=== PATIENT | female | born 1945 | race Caucasian/White ===

== ENCOUNTER 2017-12-21 15:43 | Inpatient (IN) | payer BC, OTHER ==
[~2017-12-21] VITALS: Ht 157.5 cm; Wt 81.7 kg
[2017-12-21] MEDS ORDERED: NITROGLYCERIN 0.4 MG SL PER TAB CHARGE SL PRN (17:00)
[2017-12-21] MEDS ORDERED: ONDANSETRON INJ 2 MG/ML 2 ML VIAL IV PRN (17:00)
[2017-12-21] MEDS ORDERED: ACETAMINOPHEN 325 MG TAB PO PRN (17:00)
[2017-12-21 17:10] VITALS: BP 135/85; PULSE 124; TEMP 36.7; O2SAT 98; Ht 157.5 cm; Wt 81.7 kg
[2017-12-21] MEDS ORDERED: PATIENT'S ALLERGY INFO NEEDS ENTERED SCH (17:15)
[2017-12-21] MEDS ORDERED: PATIENT'S HEIGHT AND/OR WEIGHT NEEDED SCH (17:15)
[2017-12-21] MEDS ORDERED: HEPARIN IV BOLUS 5,000 UNIT in SYRINGE 0 ML IV ONE (17:30)
--- NOTE | 2017-12-21 17:42 | History and Physical ---
History & Physical Date & Time of Service: Dec 21, 2017 at 16:58 Chief Complaint: Afib With Rvr Primary Care Physician: Kiet Barton M.D. History of Present Illness Patient is a pleasant 72yo C female with history of CAD s/p CABG x 3V in 1989, LLE DVT who presented to [facility] with 4 days of progressive SOB and CLAIRE. She also has some mild chest pain with exertion. Patient was recently diagnosed with a LLE DVT approximately 4 weeks ago in her outpatient clinic. She was started on Xarelto anticoagulation. She reports being somewhat compliant with her medication but has missed doses. On arrival to OSH she was found to be tachycardic at 120 and hypertensive. Her troponin was 0.03 and she had an elevated BNP at 2817. Her CXR showed small bilateral pleural effusions and an enlarged cardiac silhouette. 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 There was some concern that the PEs occurred while on Xarelto therapy therefore signifies Xarelto failure. She has been transferred to [facility] for evaluation for possible IVC filter and continued maintenance of medical problems. Patient was managed with a diltiazem drip and Lopressor while at the OSH. The diltiazem gtt has since been discontinued. She arrived to the unit in stable condition, JJ=[id number], appears to be atrial flutter. LU=244/96. She has no complaints at present. States that she has increased CLAIRE and some swelling in her legs. Home medications: SYnthroid 125mcg po daily Xarelto 15mg po BID Zocor 40mg po daily ASA 81mg po daily Metoprolol 50mg po BID Past Medical/Surgical History Medical Problems: 1. Atrial fibrillation 2. Pulmonary emboli - small defects in right and left lower segmental pulmonary arteries 3. DVT 4. CAD s/p CABG x 3V in 1989 5. Hypothyroidism 6. Hypertension 7. Hyperlipidemia Family History Blood clots - 2 daughters and brother Social History Smoking Status: Never Smoker Alcohol Use: none Drug Use: none Marital Status: Housing status: lives with family Allergies Coded Allergies: No Known Allergies (Unverified , 12/21/17) Review of Systems Constitutional: No fever, No chills, No sweats, No weight loss Eyes: No eye pain, No diplopia ENT: No hearing loss, No sore throat Respiratory: + shortness of breath, + dyspnea on exertion, No cough, No sputum Cardiovascular: + orthopnea, No chest pain, No edema Abdomen: No pain, No nausea, No vomiting, No diarrhea, No constipation Genitourinary - Female: No dysuria, No urinary frequency, No urinary urgency Physical Exam General Appearance: WD/WN, no apparent distress Head: normocephalic, atraumatic Eyes: normal inspection, PERRL, EOMI, sclerae normal ENT: normal ENT inspection, hearing grossly normal, pharynx normal Neck: supple, no adenopathy, thyroid normal, no JVD, trachea midline Respiratory/Chest: chest non-tender (crackles present in bilateral bases), no respiratory distress, no accessory muscle use Cardiovascular: no JVD, no murmur, normal peripheral pulses (+S1/S2, regular, tachycardic at 125bpm) Abdomen/GI: normal bowel sounds, non tender, soft, no organomegaly, no pulsatile mass Back: normal inspection, no CVA tenderness Extremities/Musculoskelatal: normal inspection (mild LE edema) Neurologic/Psych: no motor/sensory deficits, alert, normal mood/affect, oriented x 3 Skin: normal color, warm/dry, no rash Diagnostics Laboratory Results Results Past 24 Hours Test 12/21/17 16:49 Range/Units Diagnostic Radiology CXR ordered EKG The study demonstrates sinus tachycardia at 125bpm, normal axis, QRS at 124, some ST depression in the lateral leads, V4-V6 No prior EKG available Impression Assessment and Plan 72yo C female with history of CAD s/p CABG x 3 vessel in 1989, AF with RVR, recently diagnosed LLE DVT with small PEs transferred from [facility] for possible placement of IVC filter 1. DVT with PE - patient diagnosed in the outpatient setting and started on anticoagulation with Xarelto. She was seen for worsening CLAIRE which prompted a CT chest which revealed small defects in the right and left lower segmental pulmonary arteries suggestive of PE. Concern for Xarelto failure. Patient reports missing some dosages of Xarelto. Uncertain of age of PEs. If they are new and occurred while on Xarelto therapy then it may represent treatment failure, however, this is difficult to say for sure given the fact that the patient admits to missing some doses per records. I suspect that the PEs are old and are not, in fact the cause of her worsening CLAIRE. Uncertain if patient will require an IVC filter. -Will check LLE duplex US to assess size of blood clot -Heparin gtt per protocol -Supplemental O2 as needed to maintain SaO2>94% -Pulmonary consult re: status of PEs and possible placement of IVC filter 2. Atrial fibrillation/flutter - patient presently appears to be in atrial flutter on the monitor with HR of 125bpm. -Anticoagulation with heparin gtt -Will increase metoprolol to 100mg po BID and give first dose now -Metoprolol 5mg IV PRN tachycardia -Check TSH and T4 -Check 2D echocardiogram -Consider cardiology consultation in AM if patient's HR fails to respond to increased dose of Metoprolol 3. Hypothyroidism - patient on SYnthroid at home -Continue Synthroid 125mcg po daily 4. CAD - patient with history of CABG x 3V in 1989. Presently CP free. Mild elevation in troponin at OSH -Continue ASA 81mg po daily -Continue ZOcor 40mg po daily -Continue Metoprolol at increased dose as above -Trend cardiac enzymes x 3 sets to monitor trend -EKG for CP -Nitroglycerine PRN CP 5. HTN - patietn presently hemodynamically stable. -Continue Metoprolol as above -Continue to monitor 6. Hyperlipidemia - stable -Continue Zocor as above 7. ?Heart failure - Patient with elevated BNP at OSH, rales on pulmonary exam on the bases. I suspect that she is in mild CHF in setting of uncontrolled AF -Check 2D echocardiogram -Lasix 40mg IV BID -Monitor UOP -Monitor electrolytes 8. F/E/N - Heplock. Diuresis as above. Monitor electrolytes and replete as needed. AHA diet as tolerated 9. Code - Full 10. Dispo - MedTele Resuscitation Status Full VTE Prophylaxis Will order VTE Prophylaxis: Yes
[2017-12-21] MEDS ORDERED: METOPROLOL TARTRATE 100 MG TAB PO ONE (17:45)
[2017-12-21 17:47] LABS: BASO % 0.2 %; BASO ABS # 0.02 K/uL (0-0.2); EOS % 1.5 %; EOS ABS # 0.16 K/uL (0-0.5); HEMATOCRIT 34.4 % (37-47); HEMOGLOBIN 11.2 g/dL (12.0-16.0); IG# 0.03 K/uL (0.00-0.02); LYMPH % 20.6 %; LYMPH ABS # 2.17 K/uL (1.2-3.4); MEAN CELL VOLUME 89.6 fL (80-100); MEAN CORPUSCULAR HEMOGLOBIN 29.2 pg (25-34); MEAN CORPUSCULAR HGB CONC 32.6 g/dl (32-36); MEAN PLATELET VOLUME 9.2 fL (7.4-10.4); MONO % 11.7 %; MONO ABS # 1.23 K/uL (0.11-0.59); NEUT % 65.7 %; NEUT ABS # 6.92 K/uL (1.4-6.5); PLATELET COUNT 261 K/uL (130-400); RED CELL DISTRIBUTION WIDTH CV 14.4 % (11.5-14.5); RED CELL DISTRIBUTION WIDTH SD 47.6 fL (36.4-46.3); WHITE BLOOD COUNT 10.53 K/uL (4.8-10.8)
--- NOTE | 2017-12-21 18:01 | DIAGNOSTIC IMAGING REPORT ---
CHEST ONE VIEW PORTABLE HISTORY: 72 years-old Female AFIB WITH RVR acute atrial fibrillation COMPARISON: None available TECHNIQUE: Portable AP view the chest FINDINGS: Cardiac silhouette is mildly enlarged. Prior median sternotomy. Surgical clips project over the left mediastinal margin, possibly reflecting prior CABG. No pneumothorax. Trace bilateral pleural effusions with subsegmental bibasilar opacities and mild left hemidiaphragmatic elevation. No overt pulmonary edema. Bones of the chest appear grossly intact. IMPRESSION: 1. Cardiomegaly without overt pulmonary edema. 2. Trace bilateral pleural effusions with subsegmental bibasilar opacities favoring atelectasis. 3. Mild left hemidiaphragmatic elevation. The above report was generated using voice recognition software. It may contain grammatical, syntax or spelling errors. Electronically signed by: José Miguel Chang M.D. 12/21/2017 6:00 PM Dictated Date/Time: 12/21/2017 5:58 PM
[2017-12-21 18:09] LABS: INR 1.1 (0.9-1.1)
[2017-12-21 18:14] LABS: ALBUMIN 3.3 gm/dl (3.4-5.0); CALCIUM 8.6 mg/dl (8.5-10.1); CREATININE 0.82 mg/dl (0.60-1.20); POTASSIUM 3.7 mmol/L (3.5-5.1)
[2017-12-21 18:25] LABS: PHOSPHORUS 3.1 mg/dl (2.5-4.9); TOTAL PROTEIN 6.8 gm/dl (6.4-8.2)
[2017-12-21 18:31] LABS: PTT PATIENT 51.6 SECONDS (21.0-31.0)
[2017-12-21] MEDS: HEPARIN 25,000 UNIT/500ML D5W 500 ML IV SCH (18:35)
--- NOTE | 2017-12-21 18:44 | DIAGNOSTIC IMAGING REPORT ---
BILATERAL LOWER EXTREMITY VENOUS DOPPLER CLINICAL HISTORY: dvt COMPARISON STUDY: No previous studies for comparison. TECHNIQUE: Sonography of the deep venous system of the bilateral lower extremities was performed. Compression and augmentation were evaluated. FINDINGS: The common femoral, superficial femoral and popliteal veins were compressible. Augmentation was normal. Flow was shown within the deep calf vessels. Note was made of minimal echogenic material within the left peroneal vein which represents nonocclusive thrombus. IMPRESSION: 1. Minimal echogenic material within the left peroneal vein which suggests chronic thrombus. 2. No evidence for acute deep venous thrombus within either lower extremity. Electronically signed by: Prosper Schwartz M.D. 12/21/2017 6:43 PM Dictated Date/Time: 12/21/2017 6:42 PM
[2017-12-21 20:00] VITALS: BP 143/88; PULSE 124; TEMP 36.8; O2SAT 95; O2SAT 96
[2017-12-21] MEDS ORDERED: FUROSEMIDE INJ 40 MG in SYRINGE 0 ML IV ONE (21:00)
[2017-12-21] MEDS: SIMVASTATIN 40 MG TAB PO SCH (21:17)
[2017-12-21] MEDS: METOPROLOL TARTRATE 100 MG TAB PO SCH (21:18)
[2017-12-21 23:00] VITALS: BP 138/95; PULSE 122; TEMP 36.7; O2SAT 94
[2017-12-21 23:59] VITALS: O2SAT 94
[2017-12-22] VITALS (9 sets, daily range): BP systolic 112–132; BP diastolic 64–96; PULSE 58–128; TEMP 36.4–36.8; O2SAT 92–97
[2017-12-22 01:13] LABS: PTT PATIENT 60.5 SECONDS (21.0-31.0)
[2017-12-22] MEDS: METOPROLOL TARTRATE 1 MG/ML VIAL IV PRN ×2 (01:16→09:03)
[2017-12-22 05:52] LABS: BASO % 0.4 %; BASO ABS # 0.04 K/uL (0-0.2); EOS % 2.9 %; EOS ABS # 0.27 K/uL (0-0.5); HEMOGLOBIN 11.8 g/dL (12.0-16.0); IG# 0.02 K/uL (0.00-0.02); LYMPH % 24.8 %; LYMPH ABS # 2.32 K/uL (1.2-3.4); MEAN CELL VOLUME 89.8 fL (80-100); MEAN CORPUSCULAR HEMOGLOBIN 28.6 pg (25-34); MEAN CORPUSCULAR HGB CONC 31.9 g/dl (32-36); MEAN PLATELET VOLUME 9.3 fL (7.4-10.4); MONO % 10.3 %; MONO ABS # 0.96 K/uL (0.11-0.59); NEUT % 61.4 %; NEUT ABS # 5.75 K/uL (1.4-6.5); PLATELET COUNT 275 K/uL (130-400); RED CELL DISTRIBUTION WIDTH CV 14.4 % (11.5-14.5); RED CELL DISTRIBUTION WIDTH SD 47.5 fL (36.4-46.3); WHITE BLOOD COUNT 9.36 K/uL (4.8-10.8)
[2017-12-22] MEDS: LEVOTHYROXINE 125 MCG TAB PO SCH (06:12)
[2017-12-22 06:18] LABS: PTT PATIENT 25.9 SECONDS (21.0-31.0)
[2017-12-22 06:32] LABS: BLOOD UREA NITROGEN 15 mg/dl (7-18); CALCIUM 9.1 mg/dl (8.5-10.1); CARBON DIOXIDE 30 mmol/L (21-32); CREATININE 0.89 mg/dl (0.60-1.20); GLUCOSE 130 mg/dl (70-99); POTASSIUM 3.5 mmol/L (3.5-5.1); SODIUM 137 mmol/L (136-145)
[2017-12-22] MEDS ORDERED: HEPARIN IV BOLUS 5,000 UNIT in SYRINGE 0 ML IV ONE (07:15)
--- NOTE | 2017-12-22 09:06 | ECHOCARDIOGRAM REPORT ---
*NOTICE TO RECEIVING REPUBLICAN AGENCY This information is strictly Confidential and protected under [place] law. [place] law prohibits you from making any further disclosure of this information unless further disclosure is expressly permitted by the written consent of the person to whom it pertains or is authorized by law. A general authorization for the release of medical or other information is not sufficient for this purpose. Hospital accepts no responsibility if the information is made available to any other person, INCLUDING THE PATIENT. Interpretation Summary * Name: GEE HANDLEY Study Date: 12/22/2017 06:27 AM BP: 132/96 mmHg * [facility] HR: 121 * : 1945 (M/d/yyyy) Gender: Female Height: 62 in * Age: 72 yrs Ethnicity: ID Weight: 183 lb * Ordering Physician: Hillary Kay * Referring Physician: No Doctor, Assigned * Performed By: Karissa Justin RCS * * Reason For Study: A-FIB * BSA: 1.8 m2 * -- Conclusions -- * Left ventricular systolic function is mildly reduced. * No definite wall motion abnormality. * Ejection Fraction = 40-45%. * There is moderate concentric left ventricular hypertrophy. * Diastolic dysfunction is suggested. * There is mild to moderate mitral regurgitation. * There is moderate tricuspid regurgitation. Procedure Details * A complete two-dimensional transthoracic echocardiogram was performed (2D, M-mode, Doppler and color flow Doppler). Left Ventricle * The left ventricle is normal in size. * There is moderate concentric left ventricular hypertrophy. * Left ventricular systolic function is mildly reduced. * Ejection Fraction = 40-45%. * No definite wall motion abnormality. Right Ventricle * The right ventricle is not well visualized. * The right ventricular systolic function is normal as assessed by tricuspid annular plane systolic excursion (TAPSE) (normal >1.5 cm). Atria * The left atrium is mildly dilated. * Right atrium not well visualized. * There is no evidence of atrial septal defect, but resolution does not allow assessment for a patent foramen ovale. Mitral Valve * The mitral valve is grossly normal. * There is no mitral valve stenosis. * There is mild to moderate mitral regurgitation. Tricuspid Valve * The tricuspid valve is not well visualized, but is grossly normal. * There is no tricuspid stenosis. * There is moderate tricuspid regurgitation. * Right ventricular systolic pressure is elevated at 30-40mmHg. Aortic Valve * The aortic valve is trileaflet. * The aortic valve opens well. * Aortic valve sclerosis moderate, without significant aortic valvular stenosis. * There is no significant aortic regurgitation. Pulmonic Valve * The pulmonary valve is not well seen, but the Doppler examination is normal without significant regurgitation or stenosis. Great Vessels * The aortic root is normal size. * The pulmonary is not well visualized. Pericardium/Pleural * There is no pericardial effusion. Great Vessels * Normal inferior vena cava size and collapsability with sniff indicates a normal right atrial pressure of 3 mmHg Left Ventricular Diastolic Function * Diastolic dysfunction is suggested. MMode 2D Measurements and Calculations IVSd 1.6 cm IVSs 1.8 cm LVIDd 3.2 cm LVIDs 2.9 cm LVPWd 1.3 cm LVPWs 1.5 cm IVS/LVPW 1.2 FS 8.7 % EDV(Teich) 41.3 ml ESV(Teich) 33.1 ml EF(Teich) 19.8 % EDV(cubed) 33.1 ml ESV(cubed) 25.2 ml EF(cubed) 23.8 % % IVS thick 15.1 % % LVPW thick 15.2 % LV mass(C)d 164.7 grams LV mass(C)dI 89.5 grams/m\S\2 LV mass(C)s 187.2 grams LV mass(C)sI 101.7 grams/m\S\2 SV(Teich) 8.2 ml SI(Teich) 4.4 ml/m\S\2 SV(cubed) 7.9 ml SI(cubed) 4.3 ml/m\S\2 Ao root diam 3.0 cm Ao root area 7.3 cm\S\2 LA dimension 4.2 cm LA/Ao 1.4 LVOT diam 1.8 cm LVOT area 2.7 cm\S\2 LVAd ap4 27.0 cm\S\2 LVLd ap4 7.2 cm EDV(MOD-sp4) 80.1 ml EDV(sp4-el) 86.4 ml LVAs ap4 20.0 cm\S\2 LVLs ap4 6.3 cm ESV(MOD-sp4) 52.3 ml ESV(sp4-el) 54.2 ml EF(MOD-sp4) 34.7 % EF(sp4-el) 37.2 % LVAd ap2 25.7 cm\S\2 LVLd ap2 7.1 cm EDV(MOD-sp2) 77.1 ml EDV(sp2-el) 79.3 ml LVAs ap2 19.8 cm\S\2 LVLs ap2 5.8 cm ESV(MOD-sp2) 54.9 ml ESV(sp2-el) 56.8 ml EF(MOD-sp2) 28.8 % EF(sp2-el) 28.4 % LVLd %diff -1.57 % EDV(MOD-bp) 80.6 ml LVLs %diff -7.36 % ESV(MOD-bp) 55.9 ml EF(MOD-bp) 30.7 % SV(MOD-sp4) 27.8 ml SI(MOD-sp4) 15.1 ml/m\S\2 SV(MOD-sp2) 22.2 ml SI(MOD-sp2) 12.1 ml/m\S\2 SV(MOD-bp) 24.7 ml SI(MOD-bp) 13.4 ml/m\S\2 SV(sp4-el) 32.2 ml SI(sp4-el) 17.5 ml/m\S\2 SV(sp2-el) 22.5 ml SI(sp2-el) 12.2 ml/m\S\2 Doppler Measurements and Calculations MV E max maritza 122.9 cm/sec MV P1/2t max maritza 143.2 cm/sec MV P1/2t 50.5 msec MVA(P1/2t) 4.4 cm\S\2 MV dec slope 831.1 cm/sec\S\2 MV dec time 0.15 sec Ao V2 max 108.7 cm/sec Ao max PG 4.7 mmHg Ao max PG (full) 0.92 mmHg BRAD(V,A) 2.4 cm\S\2 BRAD(V,D) 2.4 cm\S\2 LV V1 max PG 3.8 mmHg LV V1 max 97.6 cm/sec MR max maritza 480.9 cm/sec MR max PG 92.5 mmHg PA V2 max 79.4 cm/sec PA max PG 2.5 mmHg TR max maritza 240.4 cm/sec
[2017-12-22] MEDS ORDERED: DILTIAZEM BOLUS / DRIP IV STA (09:34)
[2017-12-22] MEDS: DILTIAZEM HCL INJ 125 MG in DEXTROSE 5% 100ML IV PRN ×2 (09:55→17:04)
[2017-12-22] MEDS: METOPROLOL TARTRATE 100 MG TAB PO SCH ×2 (09:56→20:19)
[2017-12-22] MEDS: ASPIRIN 81 MG ECTAB PO SCH (09:56)
[2017-12-22] MEDS ORDERED: DILTIAZEM BOLUS FROM BAG IV ONE (10:00)
--- NOTE | 2017-12-22 12:22 | Clinical Documentation Query ---
CLINICAL DOCUMENTATION QUERY Dr. KHOURY, In your clinical opinion is this patient being managed for: ( ) Acute combined systolic and diastolic CHF ( ) Acute systolic CHF ( ) Not Agree ( ) Other explanation of clinical findings (Please Explain) ( ) Unable to determine (Please Define) ( ) Need to Discuss The medical record reflects the following clinical findings, treatment, and risk factors. Clinical Indicators: 72 yo female presented with SOB and CLAIRE. BNP 2564, CXR with trace bilateral pleural effusions with subsegmental bibasilar opacities. Crackles noted in bilateral bases. H/P indicates "suspect she is in mild CHF". Treatment: IV lasix, ECHO, tele, cardiology consult pending, I/O, daily wts, IV cardizem, IV heparin, prn metoprolol, O2 support prn Risk Factors: age, DVT/PE, A flutter, HTN Please clarify and document your clinical opinion in the progress notes and discharge summary. Terms such as "probable", "suspected", "likely", "questionable", "possible", or "still to be ruled out" are acceptable. IF IN AGREEMENT, YOU MUST DOCUMENT ABOVE DIAGNOSTIC STATEMENT IN DAILY PROGRESS NOTES AND DISCHARGE SUMMARY. This document is not part of the patient's record. Thank You, Noemi Joaquin RN [phone]
[2017-12-22 14:03] LABS: PTT PATIENT 60.4 SECONDS (21.0-31.0)
[2017-12-22] MEDS: HEPARIN 25,000 UNIT/500ML D5W 500 ML IV SCH (14:49)
--- NOTE | 2017-12-22 14:58 | Cardiology Consultation ---
Cardiology Consultation Date of Consultation: Dec 22, 2017. Requesting Physician: Ashutosh Reason for Consultation: AFL Pt evaluation today including: conversation w/ patient, physical exam, chart review, lab review, review of studies, review of inpatient medication list, conversation w/ attending History of Present Illness Patient is a 72-year-old woman with a history of coronary disease who was recently diagnosed with a DVT. Patient states that several weeks ago she began to notice some swelling in her lower extremities and some change in her chronic spider veins involving the left leg. Her primary care physician report ordered an ultrasound which suggested an acute DVT. She was placed on anticoagulation and appears to be doing well until several days ago which be in experience progressive shortness of breath. Patient states that over a few days she became so dyspneic that she had difficulty sleeping at night. She had an element of orthopnea and had to sleep in a chair. Her symptoms became so severe that she presented to [facility] for evaluation. At that facility she was felt to have evidence of a pulmonary embolus. She also had a elevated BNP. Based on some concern for need of an IVC filter she was transferred to [facility] for treatment. Additionally, the patient was noted to have atrial flutter. This was new diagnosis. Patient states that over the days preceding her admission she had both exertional dyspnea and an element of chest pain. This chest pain was distinct from angina she experienced prior to her bypass surgery in 1989. This was also described as a sense of fluttering and a racing heartbeat in her chest. She did not have dizziness or lightheadedness. She did not suffer a syncopal episode. She has no pain currently. She has no pain in the lower extremities. Past Medical/Surgical History Coronary artery disease status post coronary bypass grafting Hyperlipidemia Hypertension Hypothyroidism Atrial flutter DVT Past surgical history: Coronary artery bypass grafting in [facility] 1989 Family History Possible hypercoagulable disorder Social History Smoking Status: Never Smoker History of Alcohol Use: No Review of Systems Per HPI. No recent fevers or chills. Normal bowel or bladder habits. Eating normally. No gastrointestinal complaints. All Other Systems: Reviewed and Negative Allergies Coded Allergies: No Known Allergies (Unverified , 12/21/17) Medications Current Inpatient Medications Medications (Trade) Dose Ordered Sig/Kenzie Route Start Time Stop Time Status Last Admin Dose Admin Acetaminophen (Tylenol Tab) 650 mg Q4H PRN PO 12/21/17 17:00 01/20/18 16:59 Ondansetron HCl (Zofran Inj) 4 mg Q6H PRN IV 12/21/17 17:00 01/20/18 16:59 Nitroglycerin (Nitrostat Tab) 0.4 mg UD PRN SL 12/21/17 17:00 01/20/18 16:59 Heparin Sodium/ Dextrose 500 ml @ 28 mls/hr [id number] IV 12/21/17 17:30 01/20/18 17:29 12/21/17 18:35 23 MLS/HR Metoprolol Tartrate (Lopressor Tab) 100 mg BID PO 12/21/17 21:00 01/20/18 20:59 12/22/17 09:56 100 MG Metoprolol Tartrate (Lopressor Iv) 5 mg Q4 PRN IV 12/21/17 17:30 01/20/18 17:29 12/22/17 09:03 5 MG Levothyroxine Sodium (Synthroid Tab) 125 mcg DAILYBB PO 12/22/17 06:00 01/21/18 05:59 12/22/17 06:12 125 MCG Aspirin (Ecotrin Tab) 81 mg DAILY PO 12/22/17 09:00 01/21/18 08:59 12/22/17 09:56 81 MG Simvastatin (Zocor Tab) 40 mg PM PO 12/21/17 21:00 01/20/18 20:59 12/21/17 21:17 40 MG Diltiazem HCl 125 mg/Dextrose 125 ml @ 0 mls/hr Q0M PRN IV 12/22/17 10:00 01/21/18 09:59 12/22/17 09:55 10 MLS/HR Physical Exam Vital Signs Past 12 Hours Date Time Temp Pulse Resp B/P (MAP) Pulse Ox O2 Delivery O2 Flow Rate FiO2 12/22/17 12:00 81 18 114/87 (96) 96 Room Air 2.0 12/22/17 12:00 97 Room Air 2.0 12/22/17 09:03 128 137/66 12/22/17 08:00 94 Room Air 2.0 12/22/17 08:00 36.8 128 20 126/84 (98) 97 Room Air 12/22/17 04:00 94 Nasal Cannula 2.0 12/22/17 03:50 36.8 121 18 132/96 (108) 97 Nasal Cannula 2.0 She is alert and oriented x3. Mood affect appear normal. She answered all questions appropriately. HEENT: Sclerae are anicteric. Pupils are equal and reactive to light and accommodation. Extraocular movements were intact. Neuro: Cranial nerves intact Neck: Examination of the submandibular region did not reveal any significant lymphadenopathy. Carotids are palpable bilaterally and free of bruits on auscultation. There was no evidence of jugular venous distention. The thyroid was not enlarged. Lungs: Some crackles in the bases bilaterally She has normal respiratory effort without use of accessory muscles. There is normal pulmonary excursion. Cardiac: The rhythm was irregular. S1 and S2 were normal. There are no murmurs on examination. The PMI was not markedly displaced on palpation. Abdomen: The abdomen was soft and nontender. Extremities: Patient has bilateral radial pulses that are equal in intensity. There is no evidence cyanosis or clubbing. There was no evidence of significant peripheral edema bilaterally. Skin: There are no rashes noted on examination today. Some spider veins were noted on the left leg Data Laboratory Results: Last 24 Hours Test 12/21/17 17:37 12/21/17 17:38 12/21/17 21:57 12/22/17 00:35 Prothrombin Time 11.4 SECONDS Prothromb Time International Ratio 1.1 Activated Partial Thromboplast Time 51.6 SECONDS 60.5 SECONDS Partial Thromboplastin Ratio 2.0 2.3 Thyroxine (T4) 7.4 mcg/dl White Blood Count 10.53 K/uL Red Blood Count 3.84 M/uL Hemoglobin 11.2 g/dL Hematocrit 34.4 % Mean Corpuscular Volume 89.6 fL Mean Corpuscular Hemoglobin 29.2 pg Mean Corpuscular Hemoglobin Concent 32.6 g/dl Platelet Count 261 K/uL Mean Platelet Volume 9.2 fL Neutrophils (%) (Auto) 65.7 % Lymphocytes (%) (Auto) 20.6 % Monocytes (%) (Auto) 11.7 % Eosinophils (%) (Auto) 1.5 % Basophils (%) (Auto) 0.2 % Neutrophils # (Auto) 6.92 K/uL Lymphocytes # (Auto) 2.17 K/uL Monocytes # (Auto) 1.23 K/uL Eosinophils # (Auto) 0.16 K/uL Basophils # (Auto) 0.02 K/uL RDW Standard Deviation 47.6 fL RDW Coefficient of Variation 14.4 % Immature Granulocyte % (Auto) 0.3 % Immature Granulocyte # (Auto) 0.03 K/uL Sodium Level 138 mmol/L Potassium Level 3.7 mmol/L Chloride Level 103 mmol/L Carbon Dioxide Level 29 mmol/L Anion Gap 6.0 mmol/L Blood Urea Nitrogen 15 mg/dl Creatinine 0.82 mg/dl Est Creatinine Clear Calc Drug Dose 60.9 ml/min Estimated GFR () 82.3 Estimated GFR (Non- 71.0 BUN/Creatinine Ratio 17.7 Random Glucose 105 mg/dl Calcium Level 8.6 mg/dl Phosphorus Level 3.1 mg/dl Magnesium Level 1.8 mg/dl Total Bilirubin 0.6 mg/dl Direct Bilirubin 0.2 mg/dl Aspartate Amino Transf (AST/SGOT) 18 U/L Alanine Aminotransferase (ALT/SGPT) 39 U/L Alkaline Phosphatase 92 U/L Pro-B-Type Natriuretic Peptide 2564 pg/ml Total Protein 6.8 gm/dl Albumin 3.3 gm/dl Thyroid Stimulating Hormone (TSH) 2.140 uIu/ml Troponin I 0.015 ng/ml Test 12/22/17 05:39 12/22/17 13:36 White Blood Count 9.36 K/uL Red Blood Count 4.12 M/uL Hemoglobin 11.8 g/dL Hematocrit 37.0 % Mean Corpuscular Volume 89.8 fL Mean Corpuscular Hemoglobin 28.6 pg Mean Corpuscular Hemoglobin Concent 31.9 g/dl Platelet Count 275 K/uL Mean Platelet Volume 9.3 fL Neutrophils (%) (Auto) 61.4 % Lymphocytes (%) (Auto) 24.8 % Monocytes (%) (Auto) 10.3 % Eosinophils (%) (Auto) 2.9 % Basophils (%) (Auto) 0.4 % Neutrophils # (Auto) 5.75 K/uL Lymphocytes # (Auto) 2.32 K/uL Monocytes # (Auto) 0.96 K/uL Eosinophils # (Auto) 0.27 K/uL Basophils # (Auto) 0.04 K/uL RDW Standard Deviation 47.5 fL RDW Coefficient of Variation 14.4 % Immature Granulocyte % (Auto) 0.2 % Immature Granulocyte # (Auto) 0.02 K/uL Activated Partial Thromboplast Time 25.9 SECONDS 60.4 SECONDS Partial Thromboplastin Ratio 1.0 2.3 Sodium Level 137 mmol/L Potassium Level 3.5 mmol/L Chloride Level 101 mmol/L Carbon Dioxide Level 30 mmol/L Anion Gap 6.0 mmol/L Blood Urea Nitrogen 15 mg/dl Creatinine 0.89 mg/dl Est Creatinine Clear Calc Drug Dose 56.3 ml/min Estimated GFR () 74.5 Estimated GFR (Non- 64.3 BUN/Creatinine Ratio 17.1 Random Glucose 130 mg/dl Calcium Level 9.1 mg/dl Troponin I < 0.015 ng/ml 0.015 ng/ml Imaging: CT PE protocol suggested multiple pulmonary emboli Chest x-ray [facility] did not demonstrate any definite acute pulmonary edema Venous Doppler study of lower extremities did not reveal any acute DVT EKG: Atrial flutter Telemetry reviewed: Atrial flutter with relatively controlled rates. Echocardiogram performed today which reveals slightly reduced LV systolic function ejection fraction of 45%. Mild to moderate mitral regurgitation. Assessment & Plan 1. Atrial flutter: Certainly the patient's symptoms of palpitations and racing heartbeat or related to atrial flutter which likely started in the past few weeks. It is also possible this arrhythmia resulted in some decompensated heart failure. She had been on anticoagulation for DVT although her compliance was in question. Overall rate seems to be well controlled at rest on a diltiazem infusion. I did discuss several options for treatment including cardioversion and catheter based therapy. Patient is very wary of procedures at this point has elected to try medical therapy. As such we can attempt titration of oral diltiazem and see if this will provide adequate rate control. Metoprolol and digoxin could also be employed if rate control is inadequate on a single agent. She will continue her anticoagulation and plans are to transition her to warfarin given the possible development of PEs while on therapeutic Xarelto. 2. Acute decompensated congestive heart failure: She appears to have an element of pulmonary vascular congestion that responded well to diuresis. At least symptomatic Jolynn she has improved. She probably requires an element of continue diuresis monitoring electrolytes and renal function closely. 3. Ischemic cardiomyopathy: This is presumed. Her LV systolic function is slightly low and she has a history of ischemic heart disease. Unclear whether this is chronic or new. She has been maintained on a beta-serina and initiation of Omar inhibitor therapy would also be advisable. We can monitor her blood pressure while an inpatient and decide on starting this medication prior to discharge. 4. Coronary artery disease: Unclear whether her current symptoms of chest discomfort represent angina. There certainly were exertional. However, they appear to be distinct from symptoms she experienced prior to her bypass. Further discussion with the patient gives me the impression that this may have been more closely related to palpitations and pulmonary vascular congestion rather than coronary ischemia. Her biomarkers are normal at this point I would not pursue an ischemic evaluation the absence of recurrent symptoms. I think after adequate diuresis a controlled her heart rate will have an opportunity to monitor symptoms while she is active. She should continue on Xarelto, beta- serina and preferably high-dose atorvastatin rather than her simvastatin.
[2017-12-22] MEDS ORDERED: WARFARIN SOD 5 MG TAB PO SCH (16:00)
--- NOTE | 2017-12-22 16:06 | Pulmonary Consultation ---
History General Date of Service: Dec 22, 2017. Stated Complaint: Pulmonary Embolism/Xarelto Treatment Failure HPI The patient is a 72 year old female who presents to with complaints of Afib With Rvr. The patient's primary care provider is Kiet Barton M.D.. 72 y/o female admitted to [facility] with A-fib (RVR) after being transferred from [facility]. The patient has a PmHx is significant for A-fib with RVR, CAD/CABG, LLE DVT. The patient was diagnosed with a LLE DVT 4 weeks prior and started on Xeralto. She does not poor compliance with the medication. When she presented to [facility] she was tachycardia with a heart rate in the 120s, Troponin of 0.03 , BNP of 2817 and a CXR was notable for bilateral pleural effusions with an enlarged cardiac silhouette. CTA of the thorax demonstrated small filling defects in the LLL segmental arteries and mild aneurysmal dilation of the ascending aorta. At [facility] the concern was that the patient had failed Xeralto treatment and she was sent her for possible IVC filter. At [facility] the patient was treated with diltiazem gtt and Lopressor for her A-fib. During our conversation patient noted she did been having lower extremity edema for 6 month window but was equal in bilateral. It was until 4 weeks ago when she started experiencing superficial DVTs with erythema that the patient was started on Xarelto. With initiation of Xarelto the patient did note a decrease in the superficial DVTs as well as erythema. She was doing well until the last week when she started experiencing increasing shortness of breath and finally she was noticing palpitations with some chest pain and presented to [facility] with the above clinical history. At the time of our interview the patient denies: Fever, chills, productive cough, hemoptysis, pleurisy, classic cardiac chest pain or palpitations. Patient also noted during conversation excellent compliance with her Xarelto therapy not missing a dose. Pro-PNB: 2564 Alb: <3.3 Troponin: 0.015 Lower extremity venous Doppler examination: Minimal echogenic material within the left parotid ill vein which suggest chronic thrombus, no evidence for acute deep venous thrombosis within either lower extremity DVT study performed at [facility] on 11/23/2017: There is acute occlusive DVT demonstrated within the left popliteal and peroneal veins EKG: Sinus tachy rate: 125, LVH, Cardiac Echo 12/22/17 LV: EF=40-45%, LVH, systolic function is mildly reduced RV: TAPSE >1.5cm Atria: left atrium is mildly dilated MV: mild to moderate mitral regurgitation TV: moderate tricuspid regurgitation RVSP:30-40mmHg PmHx: 1. Encounter for pelvic screening for malignant neoplasm 2. Uterine prolapse 3. Vaginal wall prolapse 4. 5. Atrial fibrillation 6. Pulmonary emboli - small defects in right and left lower segmental pulmonary arteries 7. DVT 8. CAD s/p CABG x 3V in 1989 9. Hypothyroidism 10. Hypertension 11. Hyperlipidemia PsHx: 1. hysterectomy, bilateral uterosacral ligament vaginal vault suspension, and cystourethroscopy in 2015 2. CABG x 3V in 1989 3. Cholecystectomy Social History Smoking Status: Never Smoker Alcohol Use: none Drug Use: none Marital Status: Housing status: lives with family Family Hx: Blood Clots2 daughters and brother Current Meds 1. SYnthroid 125mcg po daily 2. Xarelto 15mg po BID 3. Zocor 40mg po daily 4. ASA 81mg po daily 5. Metoprolol 50mg po BID Allergies No Known Allergies (Unverified , 12/21/17) Review of Systems Constitutional: reports: as stated in HPI Eyes: reports: no symptoms ENT: reports: no symptoms Cardiovascular: reports: as stated in HPI Respiratory: reports: as stated in HPI Gastrointestinal: reports: no symptoms Genitourinary - Female: reports: no symptoms Musculoskeletal: reports: as stated in HPI Integumentary: reports: no symptoms Neurologic: reports: no symptoms Psychiatric: reports: no symptoms Endocrine: no symptoms Hematologic / Lymphatic: no symptoms Allergic / Immunologic: no symptoms Past Medical History Past Medical History: Please refer to HPI Past Surgical History: Please refer to HPI Family History Please refer to HPI Social History Please refer to HPI Smoking Status: Never Smoker Marital status: Housing status: lives with family Allergies Coded Allergies: No Known Allergies (Unverified , 12/21/17) Physical Physical Exam Vital Signs: Date Time Temp Pulse Resp B/P (MAP) Pulse Ox O2 Delivery O2 Flow Rate FiO2 12/22/17 12:00 81 18 114/87 (96) 96 Room Air 2.0 12/22/17 12:00 97 Room Air 2.0 12/22/17 09:03 128 137/66 12/22/17 08:00 94 Room Air 2.0 12/22/17 08:00 36.8 128 20 126/84 (98) 97 Room Air 12/22/17 04:00 94 Nasal Cannula 2.0 12/22/17 03:50 36.8 121 18 132/96 (108) 97 Nasal Cannula 2.0 12/22/17 01:16 123 135/88 12/21/17 23:59 94 Nasal Cannula 2.0 12/21/17 23:00 36.7 122 18 138/95 (109) 94 Nasal Cannula 2.0 12/21/17 20:00 95 Nasal Cannula 2.0 12/21/17 20:00 36.8 124 19 143/88 (106) 96 Nasal Cannula 2.0 12/21/17 17:10 36.7 124 18 135/85 98 Nasal Cannula 2.0 General Appearance: WELL-APPEARING, NO APPARENT DISTRESS Head: NORMOCEPHALIC, ATRAUMATIC Eyes: PERRLA, NO DISCHARGE, EOMI, SCLERAE NORMAL, CONJUNCTIVAE NORMAL ENT: NORMAL EAR EXAM, NORMAL NASAL EXAM, NORMAL MOUTH EXAM, NORMAL THROAT EXAM , NORMAL DENTAL EXAM Neck: NORMAL RANGE OF MOTION, NO TENDERNESS, TRACHEA MIDLINE, NO STRIDOR Respiratory: BREATH SOUNDS NORMAL, CLEAR TO AUSCULTATION, CLEAR TO PERCUSSION Cardiovasular: irregular rate, abnormal rhythm Abdomen: NON TENDER, NORMAL BOWEL SOUNDS, NO REBOUND, NO MASSES, NO GUARDING Genitourinary - Female: EXTERNAL GENITALIA NORMAL Back: NORMAL INSPECTION, NO MIDLINE TENDERNESS, NO CVA TENDERNESS, NO PARAVERTEBRAL TTP Upper Extremities: NO EDEMA, NO DEFORMITY, NORMAL ROM Lower Extremities: other (1+ pitting edema bilateral lower extremities with superficial DVTs) Pulses: carotid (R) (2+), carotid (L) (2+), dorsalis pedis (R) (2+), dorsalis pedis (L) (1+) Neuro: ALERT, ORIENTED x 3, NORMAL MOTOR EXAM, NORMAL SENSATION Reflexes: biceps (R) (2+), bicpes (L) (2+), patellar (R) (2+), patellar (L) (2+ ) Babinski Testing: right (downgoing), left (downgoing) Psychiatric: NORMAL AFFECT, NO SUICIDAL IDEATION, CONTRACTS FOR SAFETY Diagnostics Labs Results Past 24 Hours Test 12/21/17 17:37 12/21/17 17:38 12/21/17 21:57 12/22/17 00:35 Range/Units Prothrombin Time 11.4 9.0-12.0 SECONDS Prothromb Time International Ratio 1.1 0.9-1.1 Activated Partial Thromboplast Time 51.6 60.5 21.0-31.0 SECONDS Partial Thromboplastin Ratio 2.0 2.3 Thyroxine (T4) 7.4 4.5-10.9 mcg/dl White Blood Count 10.53 4.8-10.8 K/uL Red Blood Count 3.84 4.2-5.4 M/uL Hemoglobin 11.2 12.0-16.0 g/dL Hematocrit 34.4 37-47 % Mean Corpuscular Volume 89.6 80-100 fL Mean Corpuscular Hemoglobin 29.2 25-34 pg Mean Corpuscular Hemoglobin Concent 32.6 32-36 g/dl Platelet Count 261 130-400 K/uL Mean Platelet Volume 9.2 7.4-10.4 fL Neutrophils (%) (Auto) 65.7 % Lymphocytes (%) (Auto) 20.6 % Monocytes (%) (Auto) 11.7 % Eosinophils (%) (Auto) 1.5 % Basophils (%) (Auto) 0.2 % Neutrophils # (Auto) 6.92 1.4-6.5 K/uL Lymphocytes # (Auto) 2.17 1.2-3.4 K/uL Monocytes # (Auto) 1.23 0.11-0.59 K/uL Eosinophils # (Auto) 0.16 0-0.5 K/uL Basophils # (Auto) 0.02 0-0.2 K/uL RDW Standard Deviation 47.6 36.4-46.3 fL RDW Coefficient of Variation 14.4 11.5-14.5 % Immature Granulocyte % (Auto) 0.3 % Immature Granulocyte # (Auto) 0.03 0.00-0.02 K/uL Sodium Level 138 136-145 mmol/L Potassium Level 3.7 3.5-5.1 mmol/L Chloride Level 103 98-107 mmol/L Carbon Dioxide Level 29 21-32 mmol/L Anion Gap 6.0 3-11 mmol/L Blood Urea Nitrogen 15 7-18 mg/dl Creatinine 0.82 0.60-1.20 mg/dl Est Creatinine Clear Calc Drug Dose 60.9 ml/min Estimated GFR () 82.3 Estimated GFR (Non- 71.0 BUN/Creatinine Ratio 17.7 10-20 Random Glucose 105 70-99 mg/dl Calcium Level 8.6 8.5-10.1 mg/dl Phosphorus Level 3.1 2.5-4.9 mg/dl Magnesium Level 1.8 1.8-2.4 mg/dl Total Bilirubin 0.6 0.2-1 mg/dl Direct Bilirubin 0.2 0-0.2 mg/dl Aspartate Amino Transf (AST/SGOT) 18 15-37 U/L Alanine Aminotransferase (ALT/SGPT) 39 12-78 U/L Alkaline Phosphatase 92 45-117 U/L Pro-B-Type Natriuretic Peptide 2564 0-900 pg/ml Total Protein 6.8 6.4-8.2 gm/dl Albumin 3.3 3.4-5.0 gm/dl Thyroid Stimulating Hormone (TSH) 2.140 0.300-4.500 uIu/ml Troponin I 0.015 0-0.045 ng/ml Test 12/22/17 05:39 12/22/17 13:36 Range/Units White Blood Count 9.36 4.8-10.8 K/uL Red Blood Count 4.12 4.2-5.4 M/uL Hemoglobin 11.8 12.0-16.0 g/dL Hematocrit 37.0 37-47 % Mean Corpuscular Volume 89.8 80-100 fL Mean Corpuscular Hemoglobin 28.6 25-34 pg Mean Corpuscular Hemoglobin Concent 31.9 32-36 g/dl Platelet Count 275 130-400 K/uL Mean Platelet Volume 9.3 7.4-10.4 fL Neutrophils (%) (Auto) 61.4 % Lymphocytes (%) (Auto) 24.8 % Monocytes (%) (Auto) 10.3 % Eosinophils (%) (Auto) 2.9 % Basophils (%) (Auto) 0.4 % Neutrophils # (Auto) 5.75 1.4-6.5 K/uL Lymphocytes # (Auto) 2.32 1.2-3.4 K/uL Monocytes # (Auto) 0.96 0.11-0.59 K/uL Eosinophils # (Auto) 0.27 0-0.5 K/uL Basophils # (Auto) 0.04 0-0.2 K/uL RDW Standard Deviation 47.5 36.4-46.3 fL RDW Coefficient of Variation 14.4 11.5-14.5 % Immature Granulocyte % (Auto) 0.2 % Immature Granulocyte # (Auto) 0.02 0.00-0.02 K/uL Activated Partial Thromboplast Time 25.9 60.4 21.0-31.0 SECONDS Partial Thromboplastin Ratio 1.0 2.3 Sodium Level 137 136-145 mmol/L Potassium Level 3.5 3.5-5.1 mmol/L Chloride Level 101 98-107 mmol/L Carbon Dioxide Level 30 21-32 mmol/L Anion Gap 6.0 3-11 mmol/L Blood Urea Nitrogen 15 7-18 mg/dl Creatinine 0.89 0.60-1.20 mg/dl Est Creatinine Clear Calc Drug Dose 56.3 ml/min Estimated GFR () 74.5 Estimated GFR (Non- 64.3 BUN/Creatinine Ratio 17.1 10-20 Random Glucose 130 70-99 mg/dl Calcium Level 9.1 8.5-10.1 mg/dl Troponin I < 0.015 0.015 0-0.045 ng/ml Microbiology Results 12/21/17 MRSA DNA Surveillance Screen - Final, Complete Specimen Negative for MRSA by DNA Probe Diagnostic Radiology Please refer to HPI Impression Assessment and Plan 72-year-old female admitted with history of DVT and recently discovered Pulmonary Embolism with possible Xarelto Treatment Failure: 1. Pulmonary Embolism/Xarelto Treatment Failure: Most of the clinical history as well as today's DVT study at [facility] and the CT angiogram report from [facility] all suggest that the Xarelto treatment is working. In fact the previous DVT study shows the proximal vein thrombosis performed at [facility] which is not currently seen on the DVT study performed at [facility] also the patient's superficial venous thrombosis have clinically resolved. I have also spoken to Cardiology in the feel there are other etiologies for this patient's new onset atrial fibrillation that are not related to the subsegmental pulmonary emboli noted via CT imaging. This time I believe the patient can be continued on Xarelto as clinically as well as ultrasonographically she show signs of improvement.
[2017-12-22] MEDS ORDERED: RIVAROXABAN 20 MG TAB PO STA (19:02)
[2017-12-22] MEDS: SIMVASTATIN 40 MG TAB PO SCH (20:19)
--- NOTE | 2017-12-22 20:38 | Progress Note ---
Subjective Date of Service: Dec 22, 2017. Subjective Pt evaluation today including: conversation w/ patient, physical exam, chart review, lab review, review of studies (echo), conversation w/ financial services education consultant ( pulmonary, cardiology), review of inpatient medication list Pain: denies any cp at this time PO Intake: normal Voiding: no voiding problems tele stable overnight although HRs of 120s/130s were typical cardizem drip was started this AM and upon doing so her HRs went to <100 promptly recent LE edema is much improved denies any dyspnea at rest or chest pain eating fine she asks if she has pneumonia as she was told at [facility] there may have been some dx with DVT about 1 month ago; taking xarelto since Review of Systems Constitutional: No fever, No chills Respiratory: No cough, No sputum, No wheezing, No dyspnea at rest, No hemoptysis Cardiac: No chest pain, No orthopnea, No PND Abdomen: No pain, No nausea Objective Vital Signs Date Time Temp Pulse Resp B/P (MAP) Pulse Ox O2 Delivery O2 Flow Rate FiO2 12/22/17 20:22 62 12/22/17 19:30 Room Air 12/22/17 18:56 36.4 58 22 112/67 (82) 94 Nasal Cannula 1.5 12/22/17 16:00 Room Air 12/22/17 15:01 36.4 82 19 118/64 (82) 97 Nasal Cannula 2.0 12/22/17 12:00 81 18 114/87 (96) 96 Room Air 2.0 12/22/17 12:00 97 Room Air 2.0 12/22/17 09:03 128 137/66 12/22/17 08:00 94 Room Air 2.0 12/22/17 08:00 36.8 128 20 126/84 (98) 97 Room Air 12/22/17 04:00 94 Nasal Cannula 2.0 12/22/17 03:50 36.8 121 18 132/96 (108) 97 Nasal Cannula 2.0 12/22/17 01:16 123 135/88 12/21/17 23:59 94 Nasal Cannula 2.0 12/21/17 23:00 36.7 122 18 138/95 (109) 94 Nasal Cannula 2.0 Physical Exam General Appearance: no apparent distress ENT: pharynx normal Neck: no JVD Respiratory/Chest: no respiratory distress, no accessory muscle use, + decreased breath sounds (minimal - bases) Cardiovascular: no gallop, no murmur, + irregularly irregular Abdomen: normal bowel sounds, non tender, soft, no organomegaly Extremities: + pedal edema (trace b/l ) Neurologic/Psychiatric: alert, oriented x 3 Laboratory Results Last 24 Hours Test 12/21/17 21:57 12/22/17 00:35 12/22/17 05:39 12/22/17 13:36 Troponin I 0.015 ng/ml < 0.015 ng/ml 0.015 ng/ml Activated Partial Thromboplast Time 60.5 SECONDS 25.9 SECONDS 60.4 SECONDS Partial Thromboplastin Ratio 2.3 1.0 2.3 White Blood Count 9.36 K/uL Red Blood Count 4.12 M/uL Hemoglobin 11.8 g/dL Hematocrit 37.0 % Mean Corpuscular Volume 89.8 fL Mean Corpuscular Hemoglobin 28.6 pg Mean Corpuscular Hemoglobin Concent 31.9 g/dl Platelet Count 275 K/uL Mean Platelet Volume 9.3 fL Neutrophils (%) (Auto) 61.4 % Lymphocytes (%) (Auto) 24.8 % Monocytes (%) (Auto) 10.3 % Eosinophils (%) (Auto) 2.9 % Basophils (%) (Auto) 0.4 % Neutrophils # (Auto) 5.75 K/uL Lymphocytes # (Auto) 2.32 K/uL Monocytes # (Auto) 0.96 K/uL Eosinophils # (Auto) 0.27 K/uL Basophils # (Auto) 0.04 K/uL RDW Standard Deviation 47.5 fL RDW Coefficient of Variation 14.4 % Immature Granulocyte % (Auto) 0.2 % Immature Granulocyte # (Auto) 0.02 K/uL Sodium Level 137 mmol/L Potassium Level 3.5 mmol/L Chloride Level 101 mmol/L Carbon Dioxide Level 30 mmol/L Anion Gap 6.0 mmol/L Blood Urea Nitrogen 15 mg/dl Creatinine 0.89 mg/dl Est Creatinine Clear Calc Drug Dose 56.3 ml/min Estimated GFR () 74.5 Estimated GFR (Non- 64.3 BUN/Creatinine Ratio 17.1 Random Glucose 130 mg/dl Calcium Level 9.1 mg/dl Assessment and Plan 72yo female - 1. acute systolic/diastolic CHF - I do not have any prior echo to compare, but she has no prior h/o CHF. This could be due to her rapid a. flutter. Ischemia also possible but less likely. Hopefully with better a. flutter rate control her EF will improve. Her decompensation is better s/p diuresis. Looks euvolemic today. Appreciate cardiology consult. Cont BB. 2. rapid a. flutter - improved rate control with CCB in addition to BB. Anticoagulation - resume xarelto. Cardiology recommended cardioversion, but patient declined; thus, continue with rate-control strategy. Suspect her a. flutter has been present for some time as she seems to have few if any symptoms due to such. 3. recent DVT with PEs discovered at [facility] - just prior to transfer from [facility] patient had CTA showing subsegmental PEs (3-4 in number). It is possible that those PEs occurred about the same time as her DVTs about 1 month ago. If that is the case then she likely did not have a xarelto "failure." Thus, will d/c heparin and change back to xarelto 20mg once daily. 4. CAD with prior CABG (1989) - defer to cardiology about whether ischemic w/u is necessary. Cont BB, asa, statin. 5. hypothyroidism - TSH at [facility], per records, was about 2. Cont synthroid. 6. HTN - controlled. 7. hyperlipidemia - statin. 8. ?pneumonia - CT report reviewed - they mention mild "inflammatory" changes in the right middle lobe; patient has no signs/symptoms of infection. Defer on antibiotics. request PT, OT evals overall doing much better Continued [facility] stay due to: multiple IV medications needed Discharge planning: home
[2017-12-23] VITALS (18 sets, daily range): BP systolic 118–146; BP diastolic 77–96; PULSE 102–123; TEMP 36.4–37.3; O2SAT 91–96
[2017-12-23] MEDS: LEVOTHYROXINE 125 MCG TAB PO SCH (05:42)
[2017-12-23] MEDS: METOPROLOL TARTRATE 1 MG/ML VIAL IV PRN (06:06)
[2017-12-23 06:57] LABS: CALCIUM 8.6 mg/dl (8.5-10.1); CREATININE 0.89 mg/dl (0.60-1.20); POTASSIUM 3.7 mmol/L (3.5-5.1)
[2017-12-23] MEDS: DILTIAZEM HCL INJ 125 MG in DEXTROSE 5% 100ML IV PRN (08:40)
[2017-12-23] MEDS: ASPIRIN 81 MG ECTAB PO SCH (08:54)
[2017-12-23] MEDS: METOPROLOL TARTRATE 100 MG TAB PO SCH ×2 (08:54→20:33)
--- NOTE | 2017-12-23 08:59 | Pulmonology Progress Note ---
Pulmonary Progress Note Date of Service Dec 23, 2017. Attending Dr. Quiles Subjective The patient is doing well today with mild CLAIRE Objective patient sitting up in a chair with no signs of respiratory insufficiency: Vital signs: Stable on room air Respiratory: Clear to auscultation Cardiac: Irregular rhythm Abdomen: Positive bowel sounds soft nontender Extremities: Trace edema in the dependent regions Assessment & Plan 72-year-old female with the mid in atrial fibrillation with history DVT and newly diagnosed subsegmental pulmonary emboli by CT angiogram: 1.VTE: After reviewing patient's history and radiographic examinations as well as ultrasounds from [facility] in [facility] it does appear that the patient's current Xarelto has worked well and there is no signs of Xarelto failure as far as her venous thromboembolism. The patient's previous left lower extremity DVT is notably reduced when comparing her previous ultrasonic testing as to her recent 1 performed here at the [facility]. Also the patient notes clinical resolution of her superficial thrombosis. Along with this is highly probable patient had previous PEs as the CT angiogram of her chest is more consistent with subsegmental chronic clotting. At this time I would continue the patient's Xarelto therapy. 2. Aortic aneurysm: Patient is noted to have an ascending thoracic aortic aneurysm of 4 cm. At this time there is no definitive intervention necessary be sites good blood pressure control but yearly monitoring with CT angiogram, MRI and/or cardiac ultrasound is warranted. At this time the pulmonary team will sign off thank you very much Data Medications: Current Inpatient Medications Medications (Trade) Dose Ordered Sig/Kenzie Route Start Time Stop Time Status Last Admin Dose Admin Acetaminophen (Tylenol Tab) 650 mg Q4H PRN PO 12/21/17 17:00 01/20/18 16:59 Ondansetron HCl (Zofran Inj) 4 mg Q6H PRN IV 12/21/17 17:00 01/20/18 16:59 Nitroglycerin (Nitrostat Tab) 0.4 mg UD PRN SL 12/21/17 17:00 01/20/18 16:59 Metoprolol Tartrate (Lopressor Tab) 100 mg BID PO 12/21/17 21:00 01/20/18 20:59 12/22/17 20:19 100 MG Metoprolol Tartrate (Lopressor Iv) 5 mg Q4 PRN IV 4/11/18 17:30 01/20/18 17:29 12/23/17 06:06 5 MG Levothyroxine Sodium (Synthroid Tab) 125 mcg DAILYBB PO 12/22/17 06:00 01/21/18 05:59 12/23/17 05:42 125 MCG Aspirin (Ecotrin Tab) 81 mg DAILY PO 12/22/17 09:00 01/21/18 08:59 12/22/17 09:56 81 MG Simvastatin (Zocor Tab) 40 mg PM PO 12/21/17 21:00 01/20/18 20:59 12/22/17 20:19 40 MG Diltiazem HCl 125 mg/Dextrose 125 ml @ 0 mls/hr Q0M PRN IV 12/22/17 10:00 01/21/18 09:59 12/22/17 17:04 10 MLS/HR Rivaroxaban (Xarelto Tab) 20 mg QDD PO 12/23/17 16:30 01/22/18 16:29 Vital Signs: Date Time Temp Pulse Resp B/P (MAP) Pulse Ox O2 Delivery O2 Flow Rate FiO2 12/23/17 08:09 37.0 121 22 138/96 (110) 91 Room Air 12/23/17 06:06 126 12/23/17 04:42 36.7 120 20 140/84 (102) 94 12/23/17 04:00 Room Air 12/22/17 23:30 Room Air 12/22/17 23:30 36.7 63 18 113/77 (89) 92 Room Air 12/22/17 22:00 36.4 58 22 122/72 (89) 94 Nasal Cannula 2.0 12/22/17 20:22 62 12/22/17 19:30 Room Air 12/22/17 18:56 36.4 58 22 112/67 (82) 94 Nasal Cannula 1.5 12/22/17 16:00 Room Air 12/22/17 15:01 36.4 82 19 118/64 (82) 97 Nasal Cannula 2.0 12/22/17 12:00 81 18 114/87 (96) 96 Room Air 2.0 12/22/17 12:00 97 Room Air 2.0 12/22/17 09:03 128 137/66 Laboratory Results: Last 24 Hours Test 12/22/17 13:36 12/23/17 06:03 Activated Partial Thromboplast Time 60.4 SECONDS Partial Thromboplastin Ratio 2.3 Troponin I 0.015 ng/ml Sodium Level 140 mmol/L Potassium Level 3.7 mmol/L Chloride Level 105 mmol/L Carbon Dioxide Level 32 mmol/L Anion Gap 3.0 mmol/L Blood Urea Nitrogen 16 mg/dl Creatinine 0.89 mg/dl Est Creatinine Clear Calc Drug Dose 55.9 ml/min Estimated GFR () 74.5 Estimated GFR (Non- 64.3 BUN/Creatinine Ratio 17.6 Random Glucose 108 mg/dl Calcium Level 8.6 mg/dl
--- NOTE | 2017-12-23 10:43 | Cardiology Follow-Up ---
Subjective Date of Service: Dec 23, 2017. Pt evaluation today including: conversation w/ patient, physical exam, chart review, lab review, review of studies, review of inpatient medication list History of Present Illness This morning the patient claims to be feeling quite well. She has no breathing difficulty. She is not aware of any chest pain. She does not report palpitations. [facility] without dizziness or significant dyspnea. Social History Smoking Status: Never Smoker History of Alcohol Use: No Review of Systems Respiratory: No cough, No sputum, No wheezing, No dyspnea at rest, No hemoptysis Cardiac: No chest pain, No orthopnea, No PND Per HPI. No recent fevers or chills. Normal bowel or bladder habits. Eating normally. No gastrointestinal complaints. Objective Vital Signs Past 12 Hours Date Time Temp Pulse Resp B/P (MAP) Pulse Ox O2 Delivery O2 Flow Rate FiO2 12/23/17 08:09 37.0 121 22 138/96 (110) 91 Room Air 12/23/17 08:00 94 Room Air 12/23/17 06:06 126 12/23/17 04:42 36.7 120 20 140/84 (102) 94 12/23/17 04:00 Room Air 12/22/17 23:30 Room Air 12/22/17 23:30 36.7 63 18 113/77 (89) 92 Room Air Last Recorded Weight-Kilograms: 82.100 Physical Exam She is alert and oriented x3. Mood affect appear normal. She answered all questions appropriately. HEENT: Sclerae are anicteric. Pupils are equal and reactive to light and accommodation. Extraocular movements were intact. Neuro: Cranial nerves intact Neck: Examination of the submandibular region did not reveal any significant lymphadenopathy. Carotids are palpable bilaterally and free of bruits on auscultation. There was no evidence of jugular venous distention. The thyroid was not enlarged. Lungs: Some crackles in the bases bilaterally She has normal respiratory effort without use of accessory muscles. There is normal pulmonary excursion. Cardiac: The rhythm was regular. S1 and S2 were normal. There are no murmurs on examination. The PMI was not markedly displaced on palpation. Abdomen: The abdomen was soft and nontender. Extremities: Patient has bilateral radial pulses that are equal in intensity. There is no evidence cyanosis or clubbing. There was no evidence of significant peripheral edema bilaterally. Skin: There are no rashes noted on examination today. Some spider veins were noted on the left leg Data Laboratory Results: Last 24 Hours Test 12/22/17 13:36 12/23/17 06:03 Activated Partial Thromboplast Time 60.4 SECONDS Partial Thromboplastin Ratio 2.3 Troponin I 0.015 ng/ml Sodium Level 140 mmol/L Potassium Level 3.7 mmol/L Chloride Level 105 mmol/L Carbon Dioxide Level 32 mmol/L Anion Gap 3.0 mmol/L Blood Urea Nitrogen 16 mg/dl Creatinine 0.89 mg/dl Est Creatinine Clear Calc Drug Dose 55.9 ml/min Estimated GFR () 74.5 Estimated GFR (Non- 64.3 BUN/Creatinine Ratio 17.6 Random Glucose 108 mg/dl Calcium Level 8.6 mg/dl Imaging: EKG: Telemetry reviewed: Assessment and Plan 1. Atrial flutter: She has high heart rates this morning. Her metoprolol dose has been doubled. We will see if this has any appreciable effect. We could also began oral diltiazem if this is not adequate. I once again discussed the options with the patient including cardioversion and ablation. She continued to expressed a desire for medical therapy prior to intervention. Currently on Xarelto 20 milligrams daily 2. Acute decompensated congestive heart failure: Overall pulmonary congestion improved. I think she would benefit from another day of diuresis. 3. Ischemic cardiomyopathy: She seems fairly well compensated today. The overall chronicity of her LV dysfunction is unclear. She has been on a beta- serina. Use of diltiazem in this setting is relatively contraindicated but if we are attempting short-term control in anticipation of a possible ablation at a later date he would seem reasonable to employ diltiazem. Also, given her reduced LV systolic function institution of Omar inhibition would be a good idea. I will consider starting lisinopril 2.5 milligrams daily and monitoring renal function electrolytes. 4. Coronary artery disease: Some chest pain prior to admission. Probably related to her palpitations and pulmonary vascular congestion. As she becomes more active will monitor for recurrent symptoms. Continue aggressive secondary prevention.
[2017-12-23] MEDS: RIVAROXABAN 20 MG TAB PO SCH (16:32)
[2017-12-23] MEDS ORDERED: IBUTILIDE FUMARATE 0.1 MG/ML 10 ML VIAL IV ONE ×2 (16:45→18:00)
[2017-12-23] MEDS ORDERED: SODIUM CHLORIDE 0.9% IV ONE (17:00)
[2017-12-23] MEDS ORDERED: [UNRECOGNIZED DRUG - OTHER] IV ONE (17:00)
[2017-12-23] MEDS: MAGNESIUM SULFATE 1GM / D5W 1 GM in PREMIXED IN D5W 100 ML IV SCH ×2 (17:19→18:19)
[2017-12-23] MEDS ORDERED: [UNRECOGNIZED DRUG - OTHER] IV SCH (18:15)
[2017-12-23] MEDS ORDERED: SODIUM CHLORIDE 0.9% IV SCH (18:15)
[2017-12-23] MEDS ORDERED: NURSING VERBAL MED ORDER ONE (19:15)
--- NOTE | 2017-12-23 19:26 | Progress Note ---
Subjective Date of Service: Dec 23, 2017. Subjective Pt evaluation today including: conversation w/ patient, physical exam, chart review, lab review, conversation w/ [employer] consultant (cardiology), review of inpatient medication list Pain: no chest pain PO Intake: eating fine Voiding: no voiding problems tele - ongoing a. flutter, rates 120s overnight she became bradycardic and diltiazem drip had to be shut off she has no cough no dyspnea at rest she has been thinking about her options and is willing to undergo electrical cardioversion albeit with some reservation she understands the limitations of rate control with Av shan agents Review of Systems Constitutional: No fever Respiratory: No cough, No dyspnea at rest Cardiac: + edema (minimal ), No chest pain, No orthopnea Abdomen: No pain Objective Vital Signs Date Time Temp Pulse Resp B/P (MAP) Pulse Ox O2 Delivery O2 Flow Rate FiO2 12/23/17 18:27 113 18 144/93 (110) 92 Room Air 12/23/17 18:25 110 18 137/83 (101) 92 12/23/17 18:22 102 15 139/89 (106) 92 Room Air 12/23/17 18:20 107 17 146/87 (106) 92 12/23/17 17:40 110 18 138/91 (107) 92 Room Air 12/23/17 17:35 113 16 134/87 (103) 92 Room Air 12/23/17 17:32 112 17 132/88 (103) 93 Room Air 12/23/17 17:28 116 21 136/89 (105) 94 12/23/17 17:25 120 23 138/94 (109) 94 Room Air 12/23/17 17:23 122 19 132/87 (102) 92 Room Air 12/23/17 16:00 92 Room Air 12/23/17 15:47 36.7 122 24 129/95 (106) 93 Room Air 12/23/17 12:17 37.3 123 22 118/77 (91) 93 Room Air 12/23/17 12:00 Room Air 12/23/17 08:09 37.0 121 22 138/96 (110) 91 Room Air 12/23/17 08:00 94 Room Air 12/23/17 06:06 126 12/23/17 04:42 36.7 120 20 140/84 (102) 94 12/23/17 04:00 Room Air 12/22/17 23:30 Room Air 12/22/17 23:30 36.7 63 18 113/77 (89) 92 Room Air 12/22/17 22:00 36.4 58 22 122/72 (89) 94 Nasal Cannula 2.0 12/22/17 20:22 62 12/22/17 19:30 Room Air Physical Exam General Appearance: no apparent distress ENT: pharynx normal Neck: no JVD Respiratory/Chest: no respiratory distress, no accessory muscle use, + rales ( minimal bases) Cardiovascular: no murmur, + tachycardia, + irregularly irregular Abdomen: normal bowel sounds, non tender, soft, no organomegaly Extremities: + pedal edema (trace b/l ) Neurologic/Psychiatric: alert, oriented x 3 Laboratory Results Last 24 Hours Test 12/23/17 06:03 Sodium Level 140 mmol/L Potassium Level 3.7 mmol/L Chloride Level 105 mmol/L Carbon Dioxide Level 32 mmol/L Anion Gap 3.0 mmol/L Blood Urea Nitrogen 16 mg/dl Creatinine 0.89 mg/dl Est Creatinine Clear Calc Drug Dose 55.9 ml/min Estimated GFR () 74.5 Estimated GFR (Non- 64.3 BUN/Creatinine Ratio 17.6 Random Glucose 108 mg/dl Calcium Level 8.6 mg/dl Assessment and Plan 72yo female - 1. acute systolic/diastolic CHF - no prior h/o CHF and thus this is likely acute. Suspect rapid a. flutter - possibly for some time - has led to the acute CHF. Ischemia also possible but less likely. Hopefully with better a. flutter rate control her EF will improve. Again looks euvolemic today. Appreciate cardiology consult. Cont BB. 2. rapid a. flutter - improved rate control with CCB in addition to BB but ultimately developed bradycardia with the diltiazem drip. Spoke with Dr. Rowan - rate control strategy will be challenging. Thus cardioversion is recommended. Since she has been on xarelto for about [address] Rowan will try ibutilide first. If this proves ineffective then electrical cardioversion may be needed. 3. recent DVT with PEs discovered at [facility] - just prior to transfer from [facility] patient had CTA showing subsegmental PEs (3-4 in number). It is possible that those PEs occurred about the same time as her DVTs about 1 month ago. If that is the case then she likely did not have a xarelto "failure." Continue xarelto 20mg once daily. 4. CAD with prior CABG (1989) - defer to cardiology about whether ischemic w/u is necessary. Cont BB, asa, statin. 5. hypothyroidism - TSH at [facility], per records, was about 2. Cont synthroid. 6. HTN - controlled. 7. hyperlipidemia - statin. 8. ?pneumonia - CT report reviewed - they mention mild "inflammatory" changes in the right middle lobe; again patient has no signs/symptoms of infection. Defer on antibiotics. left message for daughter 12/23/17 PT, OT karin completed -- no services needed Continued [facility] stay due to: multiple IV medications needed Discharge planning: home
[2017-12-23] MEDS: SIMVASTATIN 40 MG TAB PO SCH (20:32)
[2017-12-24] VITALS (10 sets, daily range): BP systolic 127–152; BP diastolic 88–101; PULSE 118–121; TEMP 36.6–36.8; O2SAT 92–96
[2017-12-24] MEDS: LEVOTHYROXINE 125 MCG TAB PO SCH (05:53)
[2017-12-24 07:04] LABS: CREATININE 0.84 mg/dl (0.60-1.20); POTASSIUM 4.1 mmol/L (3.5-5.1)
[2017-12-24] MEDS: METOPROLOL TARTRATE 100 MG TAB PO SCH ×2 (08:14→19:58)
[2017-12-24] MEDS: ASPIRIN 81 MG ECTAB PO SCH (08:14)
[2017-12-24] MEDS: RIVAROXABAN 20 MG TAB PO SCH (17:15)
[2017-12-24] MEDS: SIMVASTATIN 40 MG TAB PO SCH (19:58)
[2017-12-25] VITALS (7 sets, daily range): BP systolic 125–158; BP diastolic 80–115; PULSE 63–121; TEMP 36.4–36.6; O2SAT 92–96
--- NOTE | 2017-12-25 07:38 | Progress Note ---
Subjective Date of Service: late entry for visit Dec 24, 2017. Subjective Pt evaluation today including: conversation w/ patient, conversation w/ family ( at bedside), physical exam, chart review, lab review, conversation w/ small business consultant (cardiology), review of inpatient medication list Pain: none PO Intake: normal Voiding: no voiding problems tele - a. flutter, rates of about 120 did not convert to NSR despite ibutilide yesterday evening denies cp, dyspnea, pnd, orthopnea Review of Systems Respiratory: No cough, No sputum Cardiac: No chest pain, No orthopnea, No PND, No edema, No palpitations Abdomen: No pain Objective Vital Signs Date Time Temp Pulse Resp B/P (MAP) Pulse Ox O2 Delivery O2 Flow Rate FiO2 12/25/17 04:30 Room Air 12/25/17 03:50 36.4 121 18 143/99 (114) 95 Room Air 12/25/17 00:00 Room Air 12/24/17 23:50 36.6 118 20 140/99 (113) 93 Room Air 12/24/17 22:00 119 131/91 (104) 12/24/17 20:00 Room Air 12/24/17 19:50 121 20 152/101 (118) 93 Room Air 12/24/17 16:16 36.7 120 22 130/94 (106) 96 Room Air 12/24/17 16:00 92 Room Air 12/24/17 12:00 92 Room Air 12/24/17 11:56 36.8 119 16 133/89 (104) 95 12/24/17 08:06 36.7 120 16 127/88 (101) 94 Room Air 12/24/17 08:00 92 Room Air Physical Exam General Appearance: no apparent distress ENT: pharynx normal Neck: no JVD Respiratory/Chest: lungs clear, no respiratory distress, no accessory muscle use Cardiovascular: no gallop, no murmur, + tachycardia (mildly irregular) Abdomen: normal bowel sounds, non tender, soft, no organomegaly Extremities: no pedal edema Neurologic/Psychiatric: alert, oriented x 3 Assessment and Plan 72yo female - 1. acute systolic/diastolic CHF - acute component resolved. Suspect rapid a. flutter - possibly for some time - led to the acute CHF. Ischemia also possible but less likely. Hopefully with better a. flutter rate control her EF will improve over time/ months. Again looks euvolemic today. Appreciate cardiology consult. Cont BB. 2. rapid a. flutter - improved rate control with CCB in addition to BB but ultimately developed bradycardia with the diltiazem drip and it had to be stopped. Unfortunately did not chemically cardiovert to NSR w/ ibutilide. Cont xarelto. After speaking w/ Dr. Hernandez we will attempt electrical cardioversion in AM. Spoke with OR and anesthesia will be at bedside tomorrow AM at 0730 to assist w / sedation. NPO after NE tonight. 3. recent DVT with PEs discovered at [facility] - just prior to transfer from [facility] patient had CTA showing subsegmental PEs (3-4 in number). It is possible that those PEs occurred about the same time as her DVTs about 1 month ago. If that is the case then she likely did not have a xarelto "failure." Continue xarelto 20mg once daily. 4. CAD with prior CABG (1989) - defer to cardiology about whether ischemic w/u is necessary. Cont BB, asa, statin. 5. hypothyroidism - TSH at [facility], per records, was about 2. Cont synthroid. 6. HTN - controlled. 7. hyperlipidemia - statin. 8. ?pneumonia - CT report reviewed - they mention mild "inflammatory" changes in the right middle lobe; again patient has no signs/symptoms of infection. Defer on antibiotics. left message for daughter 12/23/17 updated today PT, OT karin completed -- no services needed await cardioversion Continued [facility] stay due to: multiple IV medications needed, other ( uncontrolled a flutter) Discharge planning: home
--- NOTE | 2017-12-25 07:57 | Cardiology Follow-Up ---
Subjective Date of Service: Dec 25, 2017. Pt evaluation today including: conversation w/ patient, conversation w/ family , physical exam, lab review, review of studies, review of inpatient medication list, conversation w/ attending History of Present Illness Patient with difficult to control atrial flutter, has remained in rapid heart rates. She has been uncertain about cardioversion, it was scheduled for this morning at 730. Evidently a has interfered with the cardioversion and anesthesia has not spoken to the patient as yet. The patient and her family are in the room. She has no complaints today. Social History Smoking Status: Never Smoker History of Alcohol Use: No Review of Systems Respiratory: No cough, No sputum Cardiac: No chest pain, No orthopnea, No PND, No edema, No palpitations Per HPI. No recent fevers or chills. Normal bowel or bladder habits. Eating normally. No gastrointestinal complaints. Medications Cardiovascular: Item Value Date Time Rivaroxaban 20 mg 12/23/17 1630 (Xarelto Tab) QDD/PO 12/24/17 1715 Aspirin 81 mg 12/22/17 0900 (Ecotrin Tab) DAILY/PO 12/24/17 0814 Metoprolol 100 mg 12/21/17 2100 Tartrate BID/PO 12/24/171957 (Lopressor Tab) Simvastatin 40 mg 12/21/17 2100 (Zocor Tab) PM/PO 12/24/171957 Objective Vital Signs Past 12 Hours Date Time Temp Pulse Resp B/P (MAP) Pulse Ox O2 Delivery O2 Flow Rate FiO2 12/25/17 04:30 Room Air 12/25/17 03:50 36.4 121 18 143/99 (114) 95 Room Air 12/25/17 00:00 Room Air 12/24/17 23:50 36.6 118 20 140/99 (113) 93 Room Air 12/24/17 22:00 119 131/91 (104) 12/24/17 20:00 Room Air Last Recorded Weight-Kilograms: 81.700 Physical Exam Constitutional: Level of Distress: NAD Lungs: Auscultation: breath sounds normal Cardiovascular: Heart Auscultation: RRR, tachycardia Data Telemetry reviewed: Atrial flutter with a heart rate of 120 bpm for the past 24 hours. Assessment and Plan 1. Atrial flutter: She remains in atrial flutter with a rapid heart rate. We had planned on cardioversion this morning, however anesthesia was called to another procedure. Hopefully we can still do that this morning. I discussed the indications, procedure, risks and alternatives of cardioversion with the patient and she understands and agrees to proceed. Anesthesia needs to talk to the patient as yet. The family is present in the room during my discussion. Thank you for allowing me to participate in her care.
[2017-12-25] MEDS: LEVOTHYROXINE 125 MCG TAB PO SCH (08:13)
[2017-12-25] MEDS: METOPROLOL TARTRATE 100 MG TAB PO SCH (08:14)
[2017-12-25] MEDS: ASPIRIN 81 MG ECTAB PO SCH (08:14)
[2017-12-25] MEDS ORDERED: LIDOCAINE HCL 2% 2 ML VIAL (20MG/ML) ONE (09:27)
[2017-12-25] MEDS ORDERED: PROPOFOL IV EMULSION 10 MG/ML 20 ML VIAL IV ONE (09:27)
--- NOTE | 2017-12-25 09:50 | Anesthesiology Progress Note ---
Anesthesia Post Op Note Date & Time Dec 25, 2017 at 09:50 Vital Signs Pain Intensity: 0.0 Vital Signs Past 12 Hours Date Time Temp Pulse Resp B/P (MAP) Pulse Ox O2 Delivery O2 Flow Rate FiO2 12/25/17 09:24 64 18 125/81 96 Nasal Cannula 2.0 12/25/17 09:19 63 16 126/80 95 Nasal Cannula 2.0 12/25/17 09:12 117 18 152/115 95 Nasal Cannula 2.0 12/25/17 08:19 36.6 120 20 158/111 (127) 92 Room Air 12/25/17 04:30 Room Air 12/25/17 03:50 36.4 121 18 143/99 (114) 95 Room Air 12/25/17 00:00 Room Air 12/24/17 23:50 36.6 118 20 140/99 (113) 93 Room Air 12/24/17 22:00 119 131/91 (104) Notes Mental Status: alert / awake / arousable, participated in evaluation Pt Amnestic to Procedure: Yes Nausea / Vomiting: adequately controlled Pain: adequately controlled Airway Patency, RR, SpO2: stable & adequate BP & HR: stable & adequate Hydration State: stable & adequate Anesthetic Complications: no major complications apparent
--- NOTE | 2017-12-25 10:40 | Cardioversion ---
Electricial Cardioversion Rpt Date of Service: December 25, 2017 Electrical Cardioversion Rprt The patient was kept NPO after midnight and I discussed the indications, procedure, risks and alternatives of cardioversion with her and her family. Prior to the procedure she was identified, connected to the recording apparatus including electrocardiographic monitoring, noninvasive blood pressure monitoring and pulse oximetry. Anteroposterior patch electrodes were placed. The patient was anesthetized by the anesthesia department. Once adequate anesthesia was obtained a synchronized biphasic shock was delivered using 100 J with conversion to a sinus rhythm. The patient awoke from the anesthetic without sequela.
[2017-12-25] MEDS ORDERED: ZCR40 PO (11:45)
[2017-12-25] MEDS ORDERED: SYN125 PO (11:45)
[2017-12-25] MEDS ORDERED: ASPI-320 PO (11:45)
[2017-12-25] MEDS ORDERED: XRL20 PO (11:45)
[2017-12-25] MEDS ORDERED: POTA10TA PO (11:45)
[2017-12-25] MEDS ORDERED: FURO-85 PO (11:45)
[2017-12-25] MEDS ORDERED: NTRSLP4 SL (11:45)
[2017-12-25] MEDS ORDERED: LPR100 PO (11:45)
--- NOTE | 2017-12-25 14:18 | DIAGNOSTIC IMAGING REPORT ---
CHEST 2 VIEWS ROUTINE CLINICAL HISTORY: 72 years-old Female presenting with recent CHF, eval for residual pulm edema. TECHNIQUE: PA and lateral views of the chest were obtained. COMPARISON: 12/21/2017. FINDINGS: Median sternotomy wires and mediastinal surgical clips noted. Atherosclerosis of aortic arch. Cardiac silhouette mildly enlarged. Chronic elevation of the left hemidiaphragm. No new focal opacity. Chronic blunting of the bilateral costophrenic angles. No large effusion or pneumothorax. Degenerative changes of the thoracic spine. Cholecystectomy clips noted. IMPRESSION: 1. Trace pleural effusions, which are unchanged. 2. Mild cardiomegaly. 3. No focal infiltrate or evidence of pulmonary edema. Electronically signed by: Rubén Balderas M.D. 12/25/2017 2:16 PM Dictated Date/Time: 12/25/2017 2:15 PM
[2017-12-25] MEDS: RIVAROXABAN 20 MG TAB PO SCH (14:43)
--- NOTE | 2017-12-25 14:57 | Discharge Instructions ---
Discharge Instructions Date of Service Dec 25, 2017. Admission Reason for Admission: Atrial Flutter Discharge Discharge Diagnosis / Problem: Congestive Heart Failure and Atrial Flutter Discharge Goals Goal(s): Learn about illness, Diagnostic testing, Therapeutic intervention Activity Recommendations Activity Limitations: as noted below until you are seen by Dr. Rowan please perform light duties; no strenuous activities such as working in your yard, no heavy household tasks, etc light walks are fine . Instructions / Follow-Up Instructions / Follow-Up From Dr. Boykin: 1. Congestive Heart Failure Instructions - You likely developed congestive heart failure as a result of the rapid atrial flutter. Fortunately you converted out of rapid atrial flutter back to normal rhythm when Dr. Hernandez shocked your heart today. There is a fair possibility that you could go back into atrial flutter at any time in the future. Call your Primary Care doctor if any of the following symptoms or problems start or get worse: * Shortness of breath or difficulty breathing * Wake up at night short of breath * Chest pain * Cough * Swelling of your hands, feet, or legs * More fatigued or tired with your normal activity * Palpitations - sudden fast heart beats WEIGHT * Weigh yourself every morning after using the bathroom. * Use the same scale. * Wear the same amount of clothing. * Write your weight down on a chart. * Call your Primary Care doctor or your psychiatric nurse practitioner if you gain more than 2-3 pounds in 1-2 days. This is often a sign you are taking on fluid weight. MEDICATIONS * Use this discharge instruction sheet for medication instructions. * Take your medications at the time your doctor ordered. * Do not skip a dose of your medicines. * If you miss a dose of medicine, take it as soon as possible, but DO NOT DOUBLE A DOSE. * Read your medicine information when you get home. * Know all of the side effects of your medicine. If in doubt, ask your pharmacist * Call your Primary Care doctor's office if you have any side effects. * Be sure all of your doctors know what medicine and herbs you take (including cold, flu, and herbal medicine). Take the following with you to your follow-up doctor appointments: * Weight Chart * Medication List * List of questions Do not drink excessive alcohol, beer or wine. 2. Blood clots in your leg/lungs - * Note that your xarelto blood thinner has been changed to 20mg once daily; new prescription sent to [facility] for you * start the xarelto 20mg once daily TOMORROW on 12/26/17 3. Checking weights and lasix - * One of the most important things we will ask you to do at home is check your weight every morning on the same scale * If you see your weight increase 2-3 pounds in 1-2 days you are likely taking on fluid weight * If you see this happen please START the lasix (water pill) along with the potassium and let your psychiatric nurse practitioner know right away 4. Please use your home blood pressure cuff to check your blood pressure and pulse once a day. Also check the BP and pulse if you are not feeling well. Again, if your pulse is greater than 100 there is a good chance you might be back in atrial flutter. 5. Continue your metoprolol 100mg twice a day as previous for your heart. 6. Follow-up appointments - * please see Dr. Crow within 2-3 days * please see Dr. Rowan within 1-2 weeks 7. shortness of breath - your chest x-ray today was largely normal and no fluid was seen. I suspect the residual shortness of breath is from the blood clots in the lungs. The shortness of breath should improve/resolve in the next couple of weeks as the blood clots fully resolve. Current Hospital Diet Patient's current hospital diet: AHA Diet (Heart Healthy) Discharge Diet Recommended Diet: AHA Diet (Heart Healthy) Fluid Restriction: 1500 ml (6 cups) Procedures Procedures Performed: 1. ultrasound of your legs showing resolving blood clots 2. echocardiogram showing mild congestive heart failure 3. electrical cardioversion by Dr. Hernandez Pending Studies Studies pending at discharge: no Medical Emergencies . Who to Call and When: Call 911 or go to the Emergency Room if: * If at any time you feel your situation is an emergency * You have tightness or pain in your chest that does not go away with rest or Nitroglycerin * You are very short of breath even with rest . Non-Emergent Contact Non-Emergency issues call your: Primary Care Provider, Logistics Intern 1. you suspect you are back in atrial flutter (example - your home blood pressure monitor/cuff is showing a rapid pulse over 100 beats/minute 2. you are having shortness of breath 3. you are gaining weight rapidly 4. you experience palpitations, chest pain, or any other chest symptoms 5. you are having bleeding from your rectum, bladder, nose, etc . . "Provider Documentation" section prepared by Johnie Boykin. .
--- NOTE | 2017-12-29 23:22 | Discharge Summary ---
Discharge Summary Date of Service Dec 29, 2017. Discharge Summary Admission Date: Dec 21, 2017 at 16:35 Discharge Date: Dec 25, 2017 Discharge Disposition: Home with services Principal Diagnosis: atrial flutter s/p cardioversion Problems/Secondary Diagnoses: 1. acute systolic/diastolic CHF 2. recent lower extremity DVT with PEs 3. CAD s/p CABG 4. hypothyroidism 5. HTN 6. hyperlipidemia Procedures: 1. echocardiogram - * -- Conclusions -- * Left ventricular systolic function is mildly reduced. * No definite wall motion abnormality. * Ejection Fraction = 40-45%. * There is moderate concentric left ventricular hypertrophy. * Diastolic dysfunction is suggested. * There is mild to moderate mitral regurgitation. * There is moderate tricuspid regurgitation. 2. b/l LE venous dopplers - IMPRESSION: 1. Minimal echogenic material within the left peroneal vein which suggests chronic thrombus. 2. No evidence for acute deep venous thrombus within either lower extremity. 3. cxr - FINDINGS: Median sternotomy wires and mediastinal surgical clips noted. Atherosclerosis of aortic arch. Cardiac silhouette mildly enlarged. Chronic elevation of the left hemidiaphragm. No new focal opacity. Chronic blunting of the bilateral costophrenic angles. No large effusion or pneumothorax. Degenerative changes of the thoracic spine. Cholecystectomy clips noted. IMPRESSION: 1. Trace pleural effusions, which are unchanged. 2. Mild crdiomegaly. 3. No focal infiltrate or evidence of pulmonary edema. 4. cardioversion - Dajuan Hernandez MD Consultations: cardiology - Dr. Julio Rowan pulmonary - Dr. Félix Quiles PT, OT Medication Reconciliation New Medications: Furosemide (Lasix) 20 Mg Tab 20 MG PO QAM PRN for weight gain, #30 TAB 1 Refill Potassium Chloride (K-Tabs) 10 Meq Tab 10 MEQ PO QAM PRN for when you take lasix, #30 TABS 1 Refill Aspirin (Aspirin EC Low Dose) 81 Mg Ectab 81 MG PO DAILY, #90 TABS 3 Refills Levothyroxine Sodium (Synthroid) 125 Mcg Tab 125 MCG PO DAILYBB, #30 TAB 11 Refills Metoprolol Tartrate (Metoprolol Tartrate) 100 Mg Tab 100 MG PO BID, #180 TAB 1 Refill Nitroglycerin (Nitrostat) 0.4 Mg/1 Tab Subl 0.4 MG SL [id number] PRN for Chest Pain, #1 BTL 0 Refills max 3 doses in 15 minutes Rivaroxaban (Xarelto) 20 Mg Tab 20 MG PO DAILY, #90 TAB 1 Refill Simvastatin (Simvastatin) 40 Mg Tab 40 MG PO HS, #30 TAB 11 Refills Referrals At Discharge Follow up Referrals: [facility] Referral - Within 1-2 Weeks with Julio Rowan MD Discharge Exam Physical Exam: General Appearance: no apparent distress ENT: pharynx normal Neck: no JVD Respiratory/Chest: no respiratory distress, no accessory muscle use, + rales (scant, bases) Cardiovascular: regular rate, rhythm, no gallop, no murmur, normal peripheral pulses Abdomen / GI: normal bowel sounds, non tender, soft, no organomegaly Extremities: no pedal edema Neurologic/Psychiatric: alert, oriented x 3 Hospital Course HISTORY OF PRESENT ILLNESS: Patient is a pleasant 72yo female with history of CAD s/p 3-vessel CABG in 1989 , HTN, hypothyroidism, and LLE DVT discovered about 1 month ago as an outpatient who presented to [facility] with 4 days of progressive SOB and CLAIRE along with LE edema. She also had some mild chest pain with exertion. Patient was recently diagnosed with a LLE DVT approximately 4 weeks ago in her outpatient clinic. She was started on Xarelto anticoagulation. She reports being compliant with her medication. On arrival to [facility] she was found to be tachycardic at 120bpm and hypertensive. Her troponin was 0.03 and she had an elevated BNP at 2817. Her CXR showed small bilateral pleural effusions and an enlarged cardiac silhouette. 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 There was some concern that the PEs occurred while on Xarelto therapy. She was transferred to [facility] for evaluation for possible IVC filter and continued treatment of her medical problems. Patient was managed with a diltiazem drip and Lopressor while at [facility] but the drip was stopped prior to transfer. Upon arrival to [facility] the patient's HR was about 125bpm and EKG was consistent with atrial flutter. HOSPITAL COURSE: 1. rapid a. flutter - the patient was initially reluctant to pursue anything beyond a rate control strategy for her atrial flutter. Therefore her diltiazem drip was restarted and her oral beta serina was continued. Although the diltiazem did indeed provide good rate control unfortunately she became bradycardic with such and it was discontinued. Dr. Julio Rowan then recommended a trial of ibutilide for chemical cardioversion but this, too, was unsuccessful. Finally, on Tuesday12/25/17, Dr. Dajuan Hernandez successfully performed electrical cardioversion with zoroastrianism of NSR. She will d/c to home on her metoprolol 100mg BID along with xarelto 20mg once daily for anticoagulation. She will follow-up with Dr. Rowan in the [facility] Cardiology office for ongoing surveillance of her a. flutter. Following electrical cardioversion she remained hemodynamically stable. She had a residual amount of very minor CLAIRE thought 2nd to her PEs rather than the CHF. CXR on day of discharge was largely normal. 2. acute systolic/diastolic CHF - it was suspected that her presenting SOB & CLAIRE at [facility] was likely due to the the acute CHF and less likely the PEs. Her rapid a. flutter may have been the cause of her acute decompensation. Ischemia was possible as the root cause of the CHF but felt to be much less likely. Hopefully with zoroastrianism of NSR her EF will improve over time. She was diuresed early on in her stay and at discharge appeared euvolemic. She will take lasix on a PRN basis for weight gain. CHF discharge instructions were provided. Again she will remain on beta serina. 3. recent DVT with PEs discovered at [facility] - just prior to transfer from [facility] patient had CTA showing subsegmental PEs (3-4 in number). It is possible that those PEs occurred about the same time as her DVTs about 1 month ago. If that is the case then she likely did not have a xarelto "failure." She was seen in consult by pulmonary who felt that she should continue on her xarelto as previous (rather than changing to another anticoagulant). IVC filter was not recommended either. The cause of the patient's VTE event remains unknown. Will defer to her PCP any additional work-up (occult malignancy work-up, etc). 4. CAD with prior CABG (1989) - she will remain on beta serina, aspirin, and statin agent. 5. hypothyroidism - TSH at [facility], per records, was about 2. Cont synthroid. 6. HTN - controlled during her stay. 7. hyperlipidemia - she will remain on statin agent. Total Time Spent: Greater than 30 minutes This includes examination of the patient, discharge planning, medication reconciliation, and communication with other providers. Discharge Instructions Please refer to the electronic Patient Visit Report (Discharge Instructions) for additional information. Follow-Up 1. Dr. Linda Torres, PCP, 12/29/17 at 1:[address] Julio Rowan, [facility] Cardiology, 01/13/18 1:45pm Additional Copies To Julio Rowan MD; Linda Torres D.O.
--- NOTE | 2017-12-30 08:42 | EDITING REQUIRED CODING QUERY ---
CODING QUERY To promote full compliance with coding requirements relating to patient care, provider participation is requested in all cases of inking machine tender uncertainty. Please assist us with the question(s) below: Coding Question(s): Please clarify below, in your clinical opinion, regarding the Pulmonary Embolism. ( ) Likely Acute Pulmonary Embolism was treated during this admission (x ) Likely Chronic Pulmonary Embolism was treated during this admission ( ) There was No Acute and No Chronic Embolism treated during this admission - there was only a history of Pulmonary Embolism that was resolved before admission Physician's Response(s): Thank you Mandy Rodriguez Principal Diagnosis: "_that condition established after study, to be chiefly responsible for occasioning the admission of the patient to the hospital for care." Co-Existing Principal Diagnosis: "_when two or more diagnoses equally meet the criteria for principal diagnosis as determined by the circumstances of admission, diagnostic work up, and/or therapy provided, and the Alphabetic Index, Tabular List, or another coding guideline does not provide sequencing direction, any one of the diagnoses may be sequenced first." "When the physician has documented what appears to be a current diagnosis in the body of the record, but has not included the diagnosis in the final diagnostic statement, the physician should be asked whether the diagnosis should be added." (Source Coding Clinic 2 QTR90. p3-4)
== END 2017-12-25 15:19 | disposition home health service (06) | DRG 308 ==
LOC: C.MSICU 16:35 → C.2E 12-23 00:08
PROVIDERS: ADMIT Internal Medicine; ATTEND Internal Medicine
PROC: 5A2204Z Restoration of Cardiac Rhythm, Single (ICD-10-PCS; principal; 2017-12-25)
DX: I48.92 Unspecified atrial flutter (principal); I50.41 Acute combined systolic (congestive) and diastolic (congestive) heart failure; I27.82 Chronic pulmonary embolism; I82.592 Chronic embolism and thrombosis of other specified deep vein of left lower extremity; I11.0 Hypertensive heart disease with heart failure; I48.91 Unspecified atrial fibrillation; I71.2 Thoracic aortic aneurysm, without rupture; I25.10 Atherosclerotic heart disease of native coronary artery without angina pectoris; I25.5 Ischemic cardiomyopathy; E03.9 Hypothyroidism, unspecified; E78.5 Hyperlipidemia, unspecified; Z79.899 Other long term (current) drug therapy; Z79.82 Long term (current) use of aspirin; Z86.718 Personal history of other venous thrombosis and embolism; Z95.1 Presence of aortocoronary bypass graft; Z82.49 Family history of ischemic heart disease and other diseases of the circulatory system